=== PATIENT | male | born 1995 | race African-American/Black ===

== ENCOUNTER 2016-12-29 00:49 | Emergency (ER) | payer BC, OTHER ==
[~2016-12-29] VITALS: Ht 180.3 cm; Wt 67.9 kg
[2016-12-29 01:04] VITALS: PULSE 72; TEMP 36.5; O2SAT 99; Ht 180.3 cm; Wt 67.9 kg
[2016-12-29] MEDS ORDERED: IBUPROFEN 600 MG TAB PO STA (01:16)
[2016-12-29] MEDS ORDERED: LIDOCAINE/EPINEPHRINE 1% 20 ML VIAL INFIL ONE (01:30)
--- NOTE | 2016-12-29 03:53 | EMERGENCY ROOM VISIT NOTE ---
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 The patient complains of pain along the outside of the left foot and mid allen. The patient denies ankle pain. The patient rates the pain as throbbing and 5/10. The patient is able to bear weight on the foot. Constant pain, worse with movement, weight bearing, and the dependent position. No knee pain, the patient is able to move their toes. No numbness or weakness of the foot, The patient has not had a previous fracture to this foot. The patient has taken nothing for the pain. Patient complains of a laceration to the mid shaft of his tib-fib and tetanus is current. Patient is also requesting orthopedic referral for his tendinitis of his acuities to his right heel which is chronic for him. The patient denies any other injury. REVIEW OF SYSTEMS: A 6 system review of systems was completed with positives and pertinent negatives listed in the HPI. ALLERGIES: none MEDICATIONS: none PMH: Orthopedic injuries SOCIAL HISTORY: No drug use PHYSICAL EXAM: Vital Signs: Reviewed Nurse's notes, vital signs stable. GENERAL : Pleasant male, no acute distress, but appears in pain, well-developed, well- nourished. MENTAL STATUS: Alert, oriented to person place and time, and cooperative. MUSCULOSKELETAL: The left allen and foot are not swollen but there is some mild tenderness to the midshaft of the tib-fib and first great toe of the left foot, and there is no ligamentous instability. There is no fifth metatarsal tenderness. There is tenderness over the rest of the foot. There is no calf or ankle or knee tenderness. There is no visual deformity. The foot and toes are warm and well-perfused. Dorsalis pedis pulse 2+. Sensation to pain and light touch is intact. Capillary refill less than 2 seconds. 3 cm mid shaft anterior laceration to the left allen that is gaping and appears clean. No deep structures visualized. EMERGENCY DEPARTMENT COURSE: I examined the patient. Patient is given Motrin for the pain X-rays of the left tib-fib and foot were reviewed by myself and my attending and reveal no fracture. The patient was instructed on the use of crutches. Patient is requesting help for his tendinitis to his right Achilles. He was given information on orthopedics and verbalized understanding of this. He was strongly encouraged to stay off his foot to give it some time to rest. He was also encouraged not to do skateboarding until cleared from the medic at the camp and until his stitches are removed. Location: Left allen Total length: 3 cm Complexity: Simple Verbal consent was obtained after the risks and benefits were explained, including but not limited to bleeding, scarring, infection, pain, and bone/joint /nerve damage. At this time, the risks of the procedure are less than the risks of NOT performing the procedure. A time out was taken and the correct patient and site identified. The skin was prepped with betadine. The target area was anesthetized with 3 ml of 1% lidocaine with epinephrine. Copious irrigation was performed using NSS. The skin was re-prepped with betadine and a sterile field set. The wound was explored for foreign bodies and none found. Examination revealed no injury to deep structures such as tendons, bone, or significant blood vessels. Debridement was not performed. The wound edges were approximated using 5, 4-0 simple interrupted nylon sutures. Hemostasis and excellent approximation was achieved. Antibacterial ointment and a sterile dressing applied. Detailed wound care instructions and signs and symptoms of infection reviewed with the pt. Selvin wrap was applied for extra compression and neurovascular status is rechecked after placement and is intact. No complications and the patient tolerated the procedure well. Patient was advised to return to the ER immediately for severe pain, numbness, tingling, signs of infection, worsening signs or symptoms or as needed. The patient was discharged home in good condition. Differential diagnoses include sprain, strain, fracture, dislocation and other etiologies were considered. DIAGNOSIS: #1 left lower leg injury #2 left lower leg laceration DISCHARGE INSTRUCTIONS: As below Current/Historical Medications No Active Prescriptions or Reported Meds Allergies Coded Allergies: No Known Allergies (Unverified , 12/29/16) Vital Signs Date Time Temp Pulse Resp B/P (MAP) Pulse Ox O2 Delivery O2 Flow Rate FiO2 12/29/16 01:04 36.5 72 18 99 Room Air Medications Administered Medications (Trade) Dose Ordered Sig/Jeremie Route Start Time Stop Time Status Last Admin Dose Admin Ibuprofen (Motrin Tab) 600 mg NOW STAT PO 12/29/16 01:16 12/29/16 01:17 DC 12/29/16 01:16 600 MG Departure Information Impression Primary Impression: Right Achilles tendinitis Additional Impressions: Laceration of left lower leg Sprain of left foot Dispostion Home / Self-Care Condition GOOD Prescriptions No Active Prescriptions or Reported Meds Referrals Hadley Pendleton D.O. Forms HOME CARE DOCUMENTATION FORM, IMPORTANT VISIT INFORMATION Patient Instructions Achilles Tendonitis, [facility], ED Laceration All Additional Instructions No skateboarding until sutures are removed and cleared from the clinic at [place]. Keep wound clean and dry. Do not allow any crusting or dried blood to accumulate on sutures. If this occurs, use a 1:1 solution of hydrogen peroxide/ water on a Q-tip to clean the wound. Use an antibiotic ointment for 3-4 days, then let wound dry. Wear selvin wrap compression over bandage for extra compression. Do not have it so tight that you cannot feel your foot. Suture removal in 10-12 days. Return sooner for any signs of infection ( increasing redness, swelling, drainage). Ice and elevate for swelling and pain. Keep covered when in sun until sutures removed then SPF 50 or higher for one year. Vitamin E oil if desired two weeks after suture removal for reduction of scar. Ibuprofen(Motrin, Advil) may be used for fever or pain. Use 600mg every six hours as needed. Take with food. Avoid using more than 2400mg in a 24 hour period. Do not use 2400mg per day for more than three consecutive days without physician direction. Prolonged inappropriate use can lead to stomach upset or ulcers. This medication can be taken if you need to drive, work, or perform activities which may be dangerous when taking narcotic pain medication. (AND/OR) Acetaminophen(Tylenol) may be used for fever or pain. Use 1000mg every six hours as needed. Avoid using more than 3000mg in a 24 hour period. This medication can be taken if you need to drive, work, or perform activities which may be dangerous when taking narcotic pain medication. Ice compresses for 20 minutes at a time four times daily for 2-3 days. Use the crutches as instructed. Use crutches until leg is pain-free. Rest and elevate your injury. Continue current medications. Return to the ER immediately for any numbness, tingling, severe pain, extreme swelling in the extremity or as needed. Call Orthopedics tomorrow to arrange follow up for your injury. Case management will help facilitate your follow-up with orthopedics. They will call you tomorrow with your appointment. You have a shuttle that goes to orthopedics. Problem Qualifiers
--- NOTE | 2016-12-29 07:20 | DIAGNOSTIC IMAGING REPORT ---
LEFT FOOT MIN 3 VIEWS ROUTINE, LEFT TIBIA/FIBULA 2 VIEWS ROUTINE HISTORY: 21 years-old Male acute left leg and foot pain status post trauma. COMPARISON: None available TECHNIQUE: 3 views of the left foot and 2 views of the left tibia and fibula. FINDINGS: Foot: Mid alignment is anatomic. There is no acute fracture, dislocation or significant degenerative changes. No evidence of stress actuator. There is minimal spurring of the dorsal navicular. There is mild anterior ankle soft tissue swelling without radiopaque foreign body. Tibia/fibula: Bone mineralization is within normal limits. No acute fracture, dislocation or significant changes. Negative for radiopaque foreign body. IMPRESSION: 1. No acute bony abnormality of the left foot, tibia or fibula. 2. Mild anterior ankle soft tissue swelling. The above report was generated using voice recognition software. It may contain grammatical, syntax or spelling errors. Electronically signed by: Bill Nunez M.D. 12/29/2016 7:19 AM Dictated Date/Time: 12/29/2016 7:17 AM
== END 2016-12-29 02:30 | disposition home or self-care (01) ==
LOC: C.EDB 00:50
DX: S81.812A Laceration without foreign body, left lower leg, initial encounter (principal); M76.61 Achilles tendinitis, right leg; S93.602A Unspecified sprain of left foot, initial encounter; M79.605 Pain in left leg; X58.XXXA Exposure to other specified factors, initial encounter; Y92.89 Other specified places as the place of occurrence of the external cause